=== PATIENT | male | born 1950 | race Caucasian/White ===

== ENCOUNTER 2020-03-22 12:17 | Outpatient (CLI) | payer MEDICARE ==
[2020-03-22 13:00] LABS: Estimated GFR-MDRD - POC Greater than 90
[2020-03-22] MEDS ORDERED: Iopamidol-370 76% 500 ML 1 ML ONE (13:20)
--- NOTE | 2020-03-22 13:56 | CT ---
CT OF THE CHEST WITH CONTRAST 03/22/20 COMPARISON: 08/24/19 HISTORY: Pulmonary nodule. TECHNIQUE: Multiple contiguous axial images were obtained in a CT of the chest with contrast. Sagittal and coron al reformats were performed. FINDINGS: There is a nodule seen in the superior aspect of the right lower lobe. This measures slightly larger than the prior examination measuring 8 to 9 mm in greatest dimension. There are two small areas of no dularity in the lingula measuring up to 7 mm in size. These were likely present on the prior examinat ion but not definitely appreciated given the slight motion artifact on the prior examination. The lar [place] of these nodules previously measured 4 to 5 mm in size but evaluation was limited. Atelectasis is seen in the dependent aspect of the lungs. Amongst the left basilar atelectasis, there appears to be a 6 mm peripheral nodule which is well circumscribed. This may have also been present on the prior examination but difficult to appreciate. No pleural effusion or focal infiltrates are se en. There is a calcified granulomas are seen in the left upper and lower lobes. The heart is normal in size. Calcifications are seen in the coronary arteries. No hilar or mediastina l lymphadenopathy are seen. There is a stable 1.6 hypodensity in the anterior aspect of the liver which may represent a small cys t. There appears to be diffuse fatty infiltration of the liver. The other visualized subdiaphragmatic structures are unremarkable. Mild degenerative changes are seen in the spine. The chest wall soft ti ssues are unremarkable. IMPRESSION: 1. Scattered pulmonary nodules as above. These are likely stable compared to the prior examinati on but difficult to appreciate given the technique and slight motion on the prior examination. Contin ued follow-up of these nodules is recommended in six months to ensure stability. 2. Fatty liver. 3. Hepatic cyst. POS: EAA
== END 2020-03-22 12:18 | disposition home or self-care (01) ==
LOC: BICCT 12:17
PROVIDERS: ATTEND Family Medicine
DX: R91.8 Other nonspecific abnormal finding of lung field (principal); K76.0 Fatty (change of) liver, not elsewhere classified; K76.89 Other specified diseases of liver
CPT/HCPCS: 71260; 82565; Q9967

== ENCOUNTER 2020-04-15 18:52 | Emergency (ER) | payer MEDICARE | END 2020-04-15 19:45 | disposition left against medical advice (07) | LOC: ERS 18:52 | DX: Z53.21 Procedure and treatment not carried out due to patient leaving prior to being seen by health care provider (principal) ==

== ENCOUNTER 2020-04-15 23:00 | Day surgery (SDC) | payer MEDICARE ==
--- NOTE | 2020-04-15 23:39 | CON ---
DATE OF CONSULTATION: 04/15/2020 REASON FOR CONSULTATION: Esophageal food bolus impaction. HISTORY OF PRESENT ILLNESS: Candelario Perales is a 69-year-old man with a prior history of prostate cancer and hypertension as well as GERD. He reports back in the 1980s and , he had multiple episodes of esophageal foreign body impaction and was found to have a severe Schatzki's ring. He underwent multiple EGDs with dilations over the course of several years, but his last EGD would have been about 15 years ago he estimates. He has some chronic reflux symptoms, for which he takes omeprazole about every other day. He will occasionally have some mild dysphagia, but it really has not been a problem for him recently. However, about 5 hours ago this evening, he was eating a piece of chicken breast and he felt as if it got lodged somewhere in the mid to lower chest, that sensation has not resolved and he has been unable to tolerate any oral intake since that time, either solids or liquids. He has been regurgitating up liquid and small food particles since then. He does not really have any other symptoms. At the outside emergency department, he received glucagon as well as nitroglycerin without any effect. REVIEW OF SYSTEMS: Full review of systems including constitutional, head, eyes, ears, nose, throat, GI, , cardiovascular, respiratory, musculoskeletal, neurologic systems is negative except as noted in the HPI. PAST MEDICAL HISTORY: Hypertension, hyperlipidemia, GERD, prostate cancer, esophageal stricture, dilated multiple times years ago. ALLERGIES: NO KNOWN DRUG ALLERGIES. OUTPATIENT MEDICATIONS: 1. Coenzyme Q10. 2. Lisinopril. 3. Pravastatin. 4. Atenolol. 5. Aspirin 81 mg daily. 6. Fenofibrate. SOCIAL HISTORY: The patient is . [place] in the area. No drug abuse. FAMILY HISTORY: Noncontributory. PHYSICAL EXAMINATION: GENERAL: No acute distress, sitting up in stretcher comfortably. He does occasionally have to spit into an emesis bag. SKIN: No jaundice. No rashes were palpable. HEENT: Eyes, no scleral icterus. Extraocular movements intact. ENT, mucous membranes moist. No oral lesions. LYMPH: No submandibular or supraclavicular lymphadenopathy. Thyroid, nontender to palpation. HEART: Regular rate and rhythm. LUNGS: Clear to auscultation bilaterally. ABDOMEN: Bowel sounds present. Soft, nontender to palpation. EXTREMITIES: No peripheral edema. VESSELS: Radial pulses 2+ bilaterally. NEUROLOGIC: Cranial nerves 2-12 intact bilaterally. No focal deficits. LABORATORY STUDIES: None. ASSESSMENT/PLAN: 1. Esophageal food bolus impaction. 2. Prior history of esophageal stricture, status post dilation, last EGD about 15 years ago. The patient's presentation is consistent with esophageal foreign body and we will need to proceed with emergent EGD. We will plan to proceed as soon as Anesthesia is available here. I discussed the risks and benefits with the patient. He desires to proceed. Anticipate the patient will likely be able to be discharged home from the PACU following the procedure, to follow up in the outpatient clinic for repeat EGD with dilation likely within the next few weeks. Job ID: [id number]
[2020-04-16] MEDS ORDERED: Ondansetron PF 4 MG/2 ML Vial ONE (02:08)
[2020-04-16] MEDS ORDERED: Dexamethasone 20 MG/5 ML VIAL ONE (02:08)
[2020-04-16] MEDS ORDERED: Succinylcholine 200 MG/10 ml SYRINGE FS ONE (02:08)
[2020-04-16] MEDS ORDERED: PROPOFOL 200 MG/20 ML VIAL ONE (02:08)
[2020-04-16] MEDS ORDERED: Rocuronium Bromide 10 MG/ML (10ML VIAL) ONE (02:08)
[2020-04-16] MEDS ORDERED: Lidocaine 1% PF 5 ML VIAL ONE (02:08)
--- NOTE | 2020-04-16 02:53 | OP ---
DATE OF PROCEDURE: 04/16/2020 TENNIS DIRECTOR SURGEON: None. PROCEDURE PERFORMED: Esophagogastroduodenoscopy, diagnostic. INDICATION: Suspected esophageal foreign body, with prior history of esophageal stricture. MEDICATIONS: See Anesthesia record. FINDINGS: After discussion of the risks, benefits, and alternatives of the procedure, informed consent was obtained and witnessed. Pre-endoscopic cardiopulmonary examination was satisfactory. Time-out was performed before sedation was achieved. Sedation was achieved with Anesthesia assistance in the endoscopy unit with the patient endotracheally intubated for airway protection. He was placed in the left lateral decubitus position. A Pentax adult upper endoscope was placed into the oropharynx and passed through the cricopharyngeus under direct visualization. The proximal, mid, and distal esophageal mucosa appeared normal. There was no evidence of any esophageal foreign body or food bolus obstruction. However, at the GE junction, there is an area of severe maceration and edema at the GE junction at 40 cm from the incisors. There is a circumferential mild stricture in the area, but this is primarily characterized by severe acute-appearing edema and maceration. This appears to be the consequence of recent esophageal food bolus obstruction which has now passed. Due to the severity of the irritation in this area, I did not perform any esophageal dilation during this procedure. The endoscope was passed easily into the stomach. Forward and retroflexed views of the entire gastric mucosa were obtained. The gastric mucosa appears normal. The endoscope was passed through the pylorus and into the first and second portions of the duodenum, which also appeared normal. At this point, the upper endoscope was completely withdrawn and the patient allowed to recover. The patient tolerated the procedure well. There were no immediate postprocedure complications. IMPRESSION: 1. Severe maceration and edema at the GE junction at 40 cm from the incisors. There is a circumferential mild stricture at this location, not dilated on today's exam. 2. Findings consistent with esophageal foreign body, which has passed within the past couple of hours. 3. Otherwise normal esophagogastroduodenoscopy. RECOMMENDATION: 1. Liquid diet for two days, then advance diet slowly as tolerated. 2. Chew food thoroughly. 3. Increase omeprazole to twice daily dosing. 4. Plan for repeat EGD in the next 3 to 4 weeks as an outpatient for esophageal dilation. Job ID: [id number]
== END 2020-04-16 03:15 | disposition home or self-care (01) ==
LOC: SDC/OP 23:00
PROVIDERS: ATTEND Internal Medicine
PROC: 0DJ08ZZ Inspection of Upper Intestinal Tract, Via Natural or Artificial Opening Endoscopic (ICD-10-PCS; principal; 2020-04-16)
DX: K22.2 Esophageal obstruction (principal); I10 Essential (primary) hypertension; K21.9 Gastro-esophageal reflux disease without esophagitis; E78.5 Hyperlipidemia, unspecified; Z79.82 Long term (current) use of aspirin; Z79.899 Other long term (current) drug therapy; Z85.46 Personal history of malignant neoplasm of prostate
CPT/HCPCS: J1100; J2405; J2704

== ENCOUNTER 2020-09-10 08:26 | Emergency (ER) | payer MEDICARE ==
[2020-09-10 10:55] LABS: #Eosinphils 0.2 thou/uL (0.0-0.7); #Lymphocytes 1.2 thou/uL (1.20-3.40); #Monocytes 0.6 thou/uL (0.11-0.59); #Neutrophils 3.8 thou/uL (1.40-6.50); %Basophils 0.1 % (0.0-1.0); %Eosinophils 3.4 % (0.0-10.0); %Lymphocytes 20.3 % (21.0-51.0); %Monocytes 9.7 % (0.0-10.0); %Neutrophils 66.4 % (42.0-75.0); Hemoglobin 14.1 g/dL (14.0-18.0); Mean Corpuscular HGB CONC 34.3 g/dL (32.0-36.0); Mean Corpuscular Hemoglobin 30.8 pg (27.0-31.0); Mean Platelet Volume 8.9 fL (7.4-10.4); Platelet Count 150 thou/uL (130-400); RBC Distribution Width 12.7 % (11.5-14.5); Red Blood Cell (RBC) Count 4.58 mill/uL (4.70-6.10); White Blood Cell (WBC) Count 5.8 thou/uL (4.8-10.8)
[2020-09-10 11:24] LABS: ALT (SGPT) 31 U/L (8-55); AST (SGOT) 19 U/L (5-34); Alkaline Phosphatase 60 U/L (40-110); Anion Gap 10 mmol/L (10-20); BUN (Urea Nitrogen) 14 mg/dL (8.4-25.7); Bilirubin, Total 0.3 mg/dL (0.2-1.2); Calc. Creatinine Clearance 0 mL/min (70-130); Calcium 9.2 mg/dL (7.8-10.44); Carbon Dioxide 26 mmol/L (23-31); Chloride 106 mmol/L (98-107); Globulin 2.7 g/dL (2.4-3.5); Glucose 91 mg/dL (80-115); Lipase 18 U/L (8-78); Potassium 4.6 mmol/L (3.5-5.1); Protein, Total 6.7 g/dL (5.8-8.1); Sodium 137 mmol/L (136-145)
[2020-09-10] MEDS ORDERED: Aspirin Chewable 81 MG TAB ONE (12:31)
== END 2020-09-10 12:55 | disposition short-term general hospital (02) ==
LOC: ERS 08:26
DX: R07.9 Chest pain, unspecified (principal); Z79.82 Long term (current) use of aspirin; Z79.899 Other long term (current) drug therapy
CPT/HCPCS: 36415; 71045; 80053; 83690; 84484; 85025; 93005

== ENCOUNTER 2021-05-28 07:34 | Outpatient (CLI) | payer MEDICARE, OTHER ==
[2021-05-28 08:14] LABS: Estimated GFR-MDRD - POC Greater than 90
[2021-05-28] MEDS ORDERED: Iopamidol 370 76% 100 ML VIAL ONE (09:33)
== END 2021-05-28 07:35 | disposition home or self-care (01) ==
LOC: CT 07:34
PROVIDERS: ATTEND Family Medicine
DX: D41.01 Neoplasm of uncertain behavior of right kidney (principal); R93.89 Abnormal findings on diagnostic imaging of other specified body structures; R91.8 Other nonspecific abnormal finding of lung field; N28.89 Other specified disorders of kidney and ureter
CPT/HCPCS: 71260; 74178; 82565; Q9967

== ENCOUNTER 2023-07-11 16:39 | Emergency (ER) | payer OTHER ==
[~2023-07-11 16:39] MED LIST: Iopamidol-370 76% 500 ML MDV (1 ML CHARGE) ONE
[2023-07-11 17:08] LABS: #Basophils Less than 0.03 10x3/uL (0.0-0.2); %Basophils 0.2 % (0.0-1.0); %Lymphocytes 21.6 % (21.0-51.0); %Monocytes 8.4 % (0.0-10.0); %Neutrophils 66.6 % (42.0-75.0); Hematocrit 36.7 % (42.0-52.0); Hemoglobin 12.3 g/dL (14.0-18.0); Mean Corpuscular HGB CONC 33.5 g/dL (32.0-36.0); Mean Corpuscular Hemoglobin 30.3 pg (27.0-31.0); Mean Corpuscular Volume 90.4 fL (78.0-98.0); Mean Platelet Volume 11.4 fL (7.4-10.4); Platelet Count 143 10x3/uL (130-400); RBC Distribution Width 13.6 % (11.5-14.5); Red Blood Cell (RBC) Count 4.06 mill/uL (4.70-6.10)
[2023-07-11 17:18] LABS: ALT (SGPT) 21 U/L (8-55); AST (SGOT) 20 U/L (5-34); Albumin 4.1 g/dL (3.4-4.8); Alkaline Phosphatase 53 U/L (40-110); Anion Gap 12 mmol/L (10-20); BUN (Urea Nitrogen) 17 mg/dL (8.4-25.7); Bilirubin, Total 0.3 mg/dL (0.2-1.2); Calc. Creatinine Clearance 0 mL/min (70-130); Calcium 9.1 mg/dL (7.8-10.44); Carbon Dioxide 24 mmol/L (23-31); Chloride 107 mmol/L (98-107); Estimated GFR 69; Globulin 2.8 g/dL (2.4-3.5); Glucose 109 mg/dL (83-110); Lipase 33 U/L (8-78); Potassium 4.3 mmol/L (3.5-5.1); Protein, Total 6.9 g/dL (5.8-8.1); Sodium 139 mmol/L (136-145)
[2023-07-11 17:19] LABS: Prothrombin Time 12.8 sec (12.0-14.7)
[2023-07-11 17:20] LABS: PTT 27.8 sec (22.9-36.1); Troponin I Less than 0.010 ng/mL (< 0.028)
[2023-07-11 21:09] LABS: Troponin I Less than 0.010 ng/mL (< 0.028)
== END 2023-07-11 21:41 | disposition home or self-care (01) ==
LOC: ERS 16:39
DX: R91.1 Solitary pulmonary nodule (principal); I10 Essential (primary) hypertension; E78.5 Hyperlipidemia, unspecified; C61 Malignant neoplasm of prostate; Z55.6 Problems related to health literacy; Z79.82 Long term (current) use of aspirin; Z79.899 Other long term (current) drug therapy
CPT/HCPCS: 36415; 71045; 71275; 80053; 83690; 83735; 83880; 84484; 85025; 85610; 85730; 93005; Q9967